=== PATIENT | male | born 1945 | race Two or more races ===

== ENCOUNTER 2020-04-23 13:53 | Outpatient (REF) | payer MEDICARE, SELFPAY ==
--- NOTE | 2020-04-23 16:35 | MHC.AU.P13 ---
Hearing Aid Evaluation- Binaural Date of Visit: 04/23/20 Director Report Used: Citizen Of [place] translation by granddaughter Description of Hearing: Mild sloping to severe SNHL in the right ear. Moderate sloping to profound SNHL in the left ear. Summary: Patient was tested at [facility] on 02/21/20. Medical clearance was provided by Dr. Franco. Binaural amplification was recommended. Discussed options today. Interested in ABBY aids. Recommending custom earmolds. He does not use a cell phone and is not interested in connectivity. Hearing Instrument Selection: Right Ear: Geotechnical Operating Engineer: Phon[employer]amer Model: Movableeo M70-13T Battery Size: 13 Color: P6 Exhaust Worker: Size 1 P Type of Mold: slim tip Left Ear: Geotechnical Operating Engineer: Phonak Model: Movableeo M70-13T Battery Size: 13 Color: P6 Exhaust Worker: Size 1 P Type of Mold: slim tip Recommendations: Recommendations: Fitting will be scheduled when all materials have arrived. Aids ordered today. Diagnosis Code(s): Primary Diagnosis: H90.3 Bilateral Sensorineural Hearing Loss Services Performed: Hearing Aid Evaluation and Earmold: Hearing Aid Evaluation- Binaural Signature: Provider: Stefano Valle, CCC-A
== END 2020-04-23 13:54 | disposition home or self-care (01) ==
LOC: HO.HAP 13:53
PROVIDERS: Visit Provider Internal Medicine Hematology
DX: H90.3 Sensorineural hearing loss, bilateral (principal); Z46.1 Encounter for fitting and adjustment of hearing aid
CPT/HCPCS: 92591; V5275

== ENCOUNTER 2020-05-19 13:56 | Outpatient (REF) | payer MEDICARE, SELFPAY | END 2020-05-19 13:57 | disposition home or self-care (01) | LOC: HO.HAP 13:56 | PROVIDERS: PCP Internal Medicine Hematology; Visit Provider Internal Medicine Hematology | DX: H90.3 Sensorineural hearing loss, bilateral (principal) | CPT/HCPCS: 92595; V5011; V5020; V5160; V5261; V5264; V5266 ==